=== PATIENT | male | born 1980 | race Caucasian/White ===

== ENCOUNTER 2017-02-01 08:54 | Emergency (ER) | payer OTHER ==
[2017-02-01 09:09] VITALS: TEMP 98.6
--- NOTE | 2017-02-01 09:22 | ED PDOC ---
Lower Extremity Pain/Injury Time Seen by Provider: 02/01/17 08:57 Chief Complaint (Nursing): Lower Extremity Problem/Injury Chief Complaint (Provider): Calf pain History Per: Patient History/Exam Limitations: no limitations Onset/Duration Of Symptoms: Days (Yesterday) Current Symptoms Are (Timing): Still Present Additional Complaint(s): Pt. was jumping to a wall and then felt a pop on the right calf after landing to the right calf. Has pain on walking. No numbness, tingles, weakness. No injury elsewhere. Past Medical History Reviewed: Historical Data, Nursing Documentation, Vital Signs Vital Signs: Last Vital Signs Temp 98.6 F 02/01/17 09:06 Pulse 99 H 02/01/17 09:06 Resp 18 02/01/17 09:06 BP 143/88 02/01/17 09:06 Pulse Ox 97 02/01/17 09:06 - Medical History Other PMH: herniated disc - Family History Family History: States: Unknown Family Hx - Living Arrangements Living Arrangements: With Family - Social History Current smoker - smoking cessation education provided: No Alcohol: Occasional Drugs: Denies - Allergies Allergies/Adverse Reactions: Allergies Allergy/AdvReac Type Severity Reaction Status Date / Time No Known Allergies Allergy Verified 02/01/17 09:09 Review of Systems Review Of Systems: ROS cannot be obtained secondary to pt's inabilty to answer questions. Musculoskeletal: Positive for: Leg Pain Physical Exam - Reviewed Nursing Documentation Reviewed: Yes - Physical Exam Head Exam: Positive for: ATRAUMATIC, NORMAL INSPECTION, NORMOCEPHALIC Neck: Positive for: Normal, Painless ROM, Supple Cardiovascular/Chest: Positive for: Regular Rate, Rhythm Respiratory: Positive for: CNT, Normal Breath Sounds Pulses-Dorsalis Pedis (L): 2+ Pulses-Dorsalis Pedis (R): 2+ Back: Positive for: Normal Inspection. Negative for: L CVA Tenderness, R CVA Tenderness Extremity: Positive for: Normal ROM, Tenderness (R medial lower calf with tenderness). Negative for: Pedal Edema Neurologic/Psych: Positive for: Alert, Oriented - ECG O2 Sat by Pulse Oximetry: 97 - CT Scan/US MRI Other Rad Studies (CT/US): Read By Radiologist Other Rad Interpretation: Low-grade partial tear of gastrocnemius medial head musculotendinous junct - Progress ED Course And Treament: 1235: Stable. Spoke with Dr. Dutton for [facility]. Pt. has gone to [place] in the past. Wants pt. to be put in a posterior splint and no weight on leg. Fu with them. AAOx3. Procedures - Splinting Location: R lower leg Hand-Made Type: orthoglass Splint: posterior splint Pre-Proc Neuro Vasc Exam: normal Post-Proc Neuro Vasc Exam: normal Progress: stable; tolerated well. Disposition - Clinical Impression Clinical Impression: Muscle tear - Patient ED Disposition Is Patient to be Admitted: No Counseled Patient/Family Regarding: Studies Performed, Diagnosis, Need For Followup - Disposition Referrals: Jay Skinner MD [Staff Provider] - 02/02/17 Disposition: Routine/Home Disposition Time: 12:37 Condition: STABLE Additional Instructions: Return if not better in 3 days. Instructions: Tendon Rupture (ED) Forms: [facility] ([place]), [facility] ED School/Work Excuse
--- NOTE | 2017-02-01 11:40 | RAD ---
PROCEDURE: Radiographs of the right tibia and fibula. HISTORY: pain COMPARISON: None available. TECHNIQUE: Frontal and lateral views obtained. FINDINGS: BONES: No fracture or destructive lesion. JOINT SPACES: Unremarkable. OTHER FINDINGS: None. IMPRESSION: Unremarkable radiographs of the right tibia and fibula.
[2017-02-01 14:02] VITALS: BP 126/79; PULSE 81; RESP 16; O2SAT 100
--- NOTE | 2017-02-02 13:58 | MRI ---
MRI RIGHT TIBIA-FIBULA WITHOUT CONTRAST HISTORY: Pain. Evaluate for calf tear versus Achilles tear. COMPARISON: Right tibia fibula radiographs 02/01/2017 TECHNIQUE: Multisequence multiplanar, T1 and T2-weighted images of the right tibia-fibula were acquired without contrast. Coronal T1 and coronal STIR images of both tibia-fibulas was included for contralateral side comparison. Findings: The osseous structures demonstrate unremarkable marrow signal and intensity. There is no evidence of cortical disruption. There is fluid signal within the medial head of the gastrocnemius muscle distally as well as fluid signal immediately deep to the muscle. Fluid signal extends caudally to the musculotendinous junction. Achilles tendon is intact. IMPRESSION: Low-grade partial tear medial gastrocnemius muscle in the region of the musculotendinous junction as above. Preliminary impression was provided by [facility]. Findings are concordant.
== END 2017-02-01 13:59 | disposition home or self-care (01) ==
LOC: H.ER 08:54
DX: S86.811A Strain of other muscle(s) and tendon(s) at lower leg level, right leg, initial encounter (principal); X50.9XXA Other and unspecified overexertion or strenuous movements or postures, initial encounter; Y92.89 Other specified places as the place of occurrence of the external cause